=== PATIENT | female | born 1970 | race African-American/Black ===

== ENCOUNTER 2018-02-26 19:38 | Emergency (ER) | payer MEDICAID ==
[~2018-02-26] VITALS: Ht 167.6 cm; Wt 84.0 kg
[2018-02-26 23:00] VITALS: BP 134/76
== END 2018-02-26 23:00 | disposition home or self-care (01) ==
LOC: ER 22:34
DX: S46.812A Strain of other muscles, fascia and tendons at shoulder and upper arm level, left arm, initial encounter (principal); D17.9 Benign lipomatous neoplasm, unspecified; X58.XXXA Exposure to other specified factors, initial encounter; Y93.89 Activity, other specified; Y92.89 Other specified places as the place of occurrence of the external cause; Y99.8 Other external cause status; Z98.890 Other specified postprocedural states
CPT/HCPCS: 99283

== ENCOUNTER 2022-10-31 07:33 | Inpatient (IN) | payer MEDICAID, OTHER ==
[~2022-10-31] VITALS: Ht 167.6 cm; Wt 81.6 kg
[2022-10-31] MEDS ORDERED: FAMOTIDINE 20MG/2ML VIAL IV ONE (08:30)
[2022-10-31] MEDS ORDERED: SODIUM CHLORIDE 0.9% 1,000 ML IV ONE (08:30)
[2022-10-31] MEDS ORDERED: ONDANSETRON HCL 4MG/2ML INJ IV ONE (08:30)
[2022-10-31] MEDS ORDERED: ACETAMINOPHEN 325MG TABLET PO ONE (08:30)
[2022-10-31] MEDS ORDERED: KETOROLAC 30MG/ML VIAL IV ONE (08:30)
[2022-10-31 09:00] LABS: HEMATOCRIT. 26.6 % (36.0-48.0); HEMOGLOBIN. 8.7 g/dL (12.0-16.0); MEAN CORPUSCULAR HEMOGLOBIN 23.3 pg (28.0-32.0); MEAN CORPUSCULAR VOLUME 71.4 fL (81.0-99.0); MEAN PLATELET VOLUME 7.3 fl (7.4-10.4); PLATELET 492 x1000/uL (130-400); RED BLOOD CELL COUNT 3.72 mill/uL (4.2-5.4)
[2022-10-31 09:03] LABS: CHLORIDE 99 mEq/L (98-107)
[2022-10-31 09:20] VITALS: BP 145/61
[2022-10-31 09:47] LABS: PLATELET ESTIMATE INCREASED
[2022-10-31] MEDS ORDERED: AZITHROMYCIN 500MG/250ML 250 ML IV NR (10:00)
[2022-10-31] MEDS ORDERED: CEFTRIAXONE 1GM PREMIX 50 ML IV NR (10:00)
[2022-10-31 10:05] LABS: CLARITY URINE CLOUDY (CLEAR); COLOR URINE YELLOW (YELLOW); KETONES URINE NEGATIVE (NEGATIVE); LEUKOCYTE ESTERASE URINE NEGATIVE (NEGATIVE); NITRITE URINE NEGATIVE (NEGATIVE); OCCULT BLOOD URINE 3+ (NEGATIVE); PROTEIN URINE 2+ (NEGATIVE); SPECIFIC GRAVITY URINE 1.014 (1.005-1.030)
[2022-10-31] MEDS ORDERED: MORPHINE SULFATE 2 MG/ML CPJ (NOT FOR IM USE) IV ONE (11:00)
[2022-10-31 12:00] VITALS: BP 150/73
[2022-10-31] MEDS ORDERED: CLONIDINE 0.1MG TABLET PO PRN (13:30)
[2022-10-31] MEDS ORDERED: ONDANSETRON HCL 4MG/2ML INJ IV PRN (13:30)
[2022-10-31] MEDS ORDERED: DIPHENHYDRAMINE 50MG/ML VIAL IV PRN (13:30)
[2022-10-31] MEDS ORDERED: CEFTRIAXONE 1GM PREMIX 50 ML IV SCH (13:30)
[2022-10-31] MEDS ORDERED: NALOXONE HCL 0.4MG/ML VIAL IV PRN (13:45)
[2022-10-31 15:43] VITALS: BP 135/76
[2022-10-31 16:00] VITALS: BP 103/61
[2022-10-31 20:00] VITALS: BP 122/69
[2022-10-31] MEDS: METRONIDAZOLE 500MG TABLET PO SCH (21:49)
[2022-10-31] MEDS: ACETAMINOPHEN 325MG TABLET PO PRN (21:54)
[2022-11-01] VITALS: BP 118/65
[2022-11-01] MEDS ORDERED: VANCOMYCIN 1.25GM PMX (XELLIA) 250 ML IV NR (00:30)
[2022-11-01 04:00] VITALS: BP 123/95
[2022-11-01] MEDS: METRONIDAZOLE 500MG TABLET PO SCH ×3 (05:28→23:26)
[2022-11-01 08:00] VITALS: BP 123/78
[2022-11-01 08:33] LABS: BASOPHILS % 0.4 % (0.0-2.0); EOSINOPHILS % 0.6 % (0.0-5.0); HEMATOCRIT. 24.3 % (36.0-48.0); HEMOGLOBIN. 7.8 g/dL (12.0-16.0); LYMPHOCYTES % 8.2 % (20.0-50.0); MEAN CORPUSCULAR HEMOGLOBIN 22.6 pg (28.0-32.0); MEAN CORPUSCULAR VOLUME 70.7 fL (81.0-99.0); MEAN PLATELET VOLUME 7.5 fl (7.4-10.4); NEUTROPHILS % 79.8 % (40.0-76.0); PLATELET 469 x1000/uL (130-400); RED BLOOD CELL COUNT 3.44 mill/uL (4.2-5.4); RED CELL DISTRIBUTION WIDTH 16.7 % (11.6-14.6)
[2022-11-01 08:41] LABS: CHLORIDE 105 mEq/L (98-107)
[2022-11-01] MEDS: HYDROCODONE/ACETAMINOPHEN 5/325MG TABLET PO PRN (09:28)
[2022-11-01] MEDS ORDERED: AZITHROMYCIN 500 MG in DEXT 5% WATER 250 ML IV SCH (11:00)
[2022-11-01 12:00] VITALS: BP 112/54
[2022-11-01] MEDS: CEFTRIAXONE 1,000 MG in DEXTROSE 5% WATER 50 ML IV SCH (12:00)
[2022-11-01] MEDS: FERROUS SULFATE 325MG TABLET PO SCH ×2 (14:36→19:50)
[2022-11-01] MEDS: IPRATROPIUM/ALBUTEROL 0.5-3(2.5)MG/3ML NEB HHN PRN (14:50)
[2022-11-01 16:00] VITALS: BP 117/62
[2022-11-01] MEDS: DOCUSATE SODIUM 100MG CAPSULE PO SCH (19:50)
[2022-11-01] MEDS: AZITHROMYCIN 500 MG in DEXT 5% WATER 250 ML IV SCH (19:50)
[2022-11-02] MEDS: HYDROCODONE/ACETAMINOPHEN 5/325MG TABLET PO PRN ×2 (00:43→06:41)
[2022-11-02] MEDS: VANCOMYCIN 750MG PREMIX 150 ML IV SCH ×3 (00:43→21:52)
[2022-11-02] MEDS: METRONIDAZOLE 500MG TABLET PO SCH ×3 (06:35→21:52)
[2022-11-02] MEDS: IPRATROPIUM/ALBUTEROL 0.5-3(2.5)MG/3ML NEB HHN PRN (07:42)
[2022-11-02 07:52] VITALS: BP 118/73
[2022-11-02] MEDS: FERROUS SULFATE 325MG TABLET PO SCH ×3 (08:33→17:07)
[2022-11-02] MEDS: DOCUSATE SODIUM 100MG CAPSULE PO SCH ×2 (08:33→17:07)
[2022-11-02 12:00] VITALS: BP 142/82
[2022-11-02] MEDS: CEFTRIAXONE 1,000 MG in DEXTROSE 5% WATER 50 ML IV SCH (12:45)
[2022-11-02] MEDS: AZITHROMYCIN 500 MG in DEXT 5% WATER 250 ML IV SCH (17:07)
[2022-11-02 20:00] VITALS: BP 130/81
[2022-11-03] VITALS: BP 139/87
[2022-11-03 04:00] VITALS: BP 134/84
[2022-11-03 06:12] LABS: HEMATOCRIT. 24.4 % (36.0-48.0); HEMOGLOBIN. 7.9 g/dL (12.0-16.0); MEAN CORPUSCULAR HEMOGLOBIN 22.8 pg (28.0-32.0); MEAN PLATELET VOLUME 7.2 fl (7.4-10.4); PLATELET 545 x1000/uL (130-400); RED BLOOD CELL COUNT 3.48 mill/uL (4.2-5.4); RED CELL DISTRIBUTION WIDTH 17.1 % (11.6-14.6)
[2022-11-03 07:07] LABS: CHLORIDE 102 mEq/L (98-107)
[2022-11-03 08:00] VITALS: BP 150/87
[2022-11-03] MEDS: DOCUSATE SODIUM 100MG CAPSULE PO SCH ×2 (10:07→17:15)
[2022-11-03] MEDS: CEFTRIAXONE 1,000 MG in DEXTROSE 5% WATER 50 ML IV SCH (10:08)
[2022-11-03] MEDS: FERROUS SULFATE 325MG TABLET PO SCH ×3 (10:08→17:15)
[2022-11-03] MEDS: IPRATROPIUM/ALBUTEROL 0.5-3(2.5)MG/3ML NEB HHN PRN ×2 (10:32→20:19)
[2022-11-03 12:00] VITALS: BP 140/81
[2022-11-03 16:00] VITALS: BP 149/89
[2022-11-03 17:13] LABS: PLATELET ESTIMATE INCREASED
[2022-11-03 20:00] VITALS: BP 153/80
[2022-11-03] MEDS: GUAIFENESIN 600MG ER TABLET PO SCH (20:47)
[2022-11-04] VITALS: BP 142/87
[2022-11-04 04:00] VITALS: BP 142/89
[2022-11-04] MEDS: FERROUS SULFATE 325MG TABLET PO SCH ×3 (06:19→17:50)
[2022-11-04 06:47] LABS: HCG SCREEN NEGATIVE
[2022-11-04 08:00] VITALS: BP 151/83
[2022-11-04 08:08] LABS: HIV SCREEN 4G Non Reactive (Non Reactive)
[2022-11-04] MEDS: GUAIFENESIN 600MG ER TABLET PO SCH ×2 (08:55→20:41)
[2022-11-04] MEDS: DOCUSATE SODIUM 100MG CAPSULE PO SCH ×2 (08:56→17:00)
[2022-11-04 12:00] VITALS: BP_SYST 136; BP_SYST 145; BP_DIAS 49; BP_DIAS 78
[2022-11-04] MEDS: CEFTRIAXONE 1,000 MG in DEXTROSE 5% WATER 50 ML IV SCH (12:03)
[2022-11-04 16:00] VITALS: BP 126/73
[2022-11-04] MEDS: HYDROCODONE/ACETAMINOPHEN 5/325MG TABLET PO PRN (18:19)
[2022-11-04] MEDS: AZITHROMYCIN 500 MG in DEXT 5% WATER 250 ML IV SCH (18:30)
[2022-11-04 20:00] VITALS: BP 139/79
[2022-11-05] VITALS: BP 137/90
[2022-11-05] MEDS: HYDROCODONE/ACETAMINOPHEN 5/325MG TABLET PO PRN ×2 (02:08→12:49)
[2022-11-05 08:00] VITALS: BP 126/72
[2022-11-05] MEDS: FERROUS SULFATE 325MG TABLET PO SCH ×3 (08:49→19:03)
[2022-11-05] MEDS: DOCUSATE SODIUM 100MG CAPSULE PO SCH ×2 (08:49→19:03)
[2022-11-05] MEDS: GUAIFENESIN 600MG ER TABLET PO SCH ×2 (08:49→23:12)
[2022-11-05] MEDS: CEFTRIAXONE 1,000 MG in DEXTROSE 5% WATER 50 ML IV SCH (12:33)
[2022-11-05 16:00] VITALS: BP 135/80
[2022-11-05] MEDS: AZITHROMYCIN 500 MG in DEXT 5% WATER 250 ML IV SCH (19:03)
[2022-11-05 20:00] VITALS: BP 121/72
[2022-11-05] MEDS: ACETAMINOPHEN 325MG TABLET PO PRN (22:13)
[2022-11-05] MEDS ORDERED: POTASSIUM CHLORIDE 20MEQ TABLET SR PO NR (22:45)
[2022-11-06] VITALS: BP_SYST 123; BP_SYST 126; BP_DIAS 57; BP_DIAS 71
[2022-11-06 04:00] VITALS: BP 142/78
[2022-11-06] MEDS: HYDROCODONE/ACETAMINOPHEN 5/325MG TABLET PO PRN ×3 (06:18→20:36)
[2022-11-06] MEDS: GUAIFENESIN 600MG ER TABLET PO SCH ×2 (08:32→20:35)
[2022-11-06] MEDS: DOCUSATE SODIUM 100MG CAPSULE PO SCH ×2 (08:32→17:40)
[2022-11-06] MEDS: FERROUS SULFATE 325MG TABLET PO SCH ×3 (08:32→17:40)
[2022-11-06 09:59] LABS: BASOPHILS % 0.5 % (0.0-2.0); EOSINOPHILS % 1.2 % (0.0-5.0); HEMOGLOBIN. 8.2 g/dL (12.0-16.0); LYMPHOCYTES % 12.5 % (20.0-50.0); MEAN CORPUSCULAR HEMOGLOBIN 22.4 pg (28.0-32.0); MEAN CORPUSCULAR VOLUME 70.4 fL (81.0-99.0); MEAN PLATELET VOLUME 6.9 fl (7.4-10.4); MONOCYTES % 6.3 % (2.0-8.0); NEUTROPHILS % 79.5 % (40.0-76.0); PLATELET 741 x1000/uL (130-400); RED BLOOD CELL COUNT 3.69 mill/uL (4.2-5.4)
[2022-11-06 10:09] LABS: CHLORIDE 99 mEq/L (98-107)
[2022-11-06] MEDS: CEFTRIAXONE 1,000 MG in DEXTROSE 5% WATER 50 ML IV SCH (11:15)
[2022-11-06 12:00] VITALS: BP_SYST 136; BP_SYST 141; BP_DIAS 84; BP_DIAS 87
[2022-11-06] MEDS ORDERED: NALOXONE HCL 0.4MG/ML VIAL IV PRN (14:30)
[2022-11-06 16:00] VITALS: BP 131/80
[2022-11-06] MEDS ORDERED: CLONIDINE 0.1MG TABLET PO PRN (16:45)
[2022-11-06] MEDS: BENZONATATE 100MG CAPSULE PO PRN (17:45)
[2022-11-06 20:00] VITALS: BP 142/89
[2022-11-07] VITALS: BP 126/71
[2022-11-07 04:00] VITALS: BP 135/75
[2022-11-07] MEDS: BENZONATATE 100MG CAPSULE PO PRN (06:22)
[2022-11-07] MEDS: FERROUS SULFATE 325MG TABLET PO SCH (06:22)
[2022-11-07] MEDS: HYDROCODONE/ACETAMINOPHEN 5/325MG TABLET PO PRN ×2 (06:22→12:21)
[2022-11-07 08:00] VITALS: BP 142/76
[2022-11-07] MEDS ORDERED: LIDOCAINE HCL 1% 10 MG/ML 10ML VIAL ONE (08:31)
[2022-11-07] MEDS: DOCUSATE SODIUM 100MG CAPSULE PO SCH (10:01)
[2022-11-07] MEDS: GUAIFENESIN 600MG ER TABLET PO SCH (10:01)
[2022-11-07] MEDS: CEFTRIAXONE 1,000 MG in DEXTROSE 5% WATER 50 ML IV SCH (10:16)
[2022-11-07] MEDS ORDERED: GUAI600T44 PO (10:45)
[2022-11-07] MEDS ORDERED: BENZ100C86 PO (10:45)
[2022-11-07] MEDS ORDERED: FERR-63 PO (10:45)
[2022-11-07 12:00] VITALS: BP 128/75
[2022-11-07 12:14] VITALS: BP 128/75
[2022-11-07 12:21] VITALS: BP 128/75
== END 2022-11-07 13:20 | disposition home health service (06) | DRG 720 ==
LOC: ER 07:33 → 6EST 13:01 → EDBEDREQTM 13:04 → EDBEDREQ 13:04
PROVIDERS: ADMIT Internal Medicine; ATTEND Internal Medicine
PROC: 02HV33Z Insertion of Infusion Device into Superior Vena Cava, Percutaneous Approach (ICD-10-PCS; principal; 2022-11-07)
PROC: B5181ZA Fluoroscopy of Superior Vena Cava using Low Osmolar Contrast, Guidance (ICD-10-PCS; 2022-11-07)
PROC: B548ZZA Ultrasonography of Superior Vena Cava, Guidance (ICD-10-PCS; 2022-11-07)
DX: A40.3 Sepsis due to Streptococcus pneumoniae (principal); J18.9 Pneumonia, unspecified organism; E44.0 Moderate protein-calorie malnutrition; E87.1 Hypo-osmolality and hyponatremia; E88.09 Other disorders of plasma-protein metabolism, not elsewhere classified; Z20.822 Contact with and (suspected) exposure to COVID-19; E87.6 Hypokalemia; D25.9 Leiomyoma of uterus, unspecified; D50.9 Iron deficiency anemia, unspecified; N83.209 Unspecified ovarian cyst, unspecified side; N93.8 Other specified abnormal uterine and vaginal bleeding; Z68.29 Body mass index [BMI] 29.0-29.9, adult
CPT/HCPCS: 36415; 36573; 71045; 71250; 74176; 76856; 80048; 80053; 80202; 81003; 83735; 84145; 84484; 84703; 85025; 87077; 87186; 87389; 87426; 87804; 93005; 93970; 94640; 99285; C1725; C9803; J0456; J0696; J1200; J1885; J2270; J2405; J3370; J3490; J7030; J7060

== ENCOUNTER 2023-11-09 02:20 | Emergency (ER) | payer MEDICAID ==
[~2023-11-09] VITALS: Ht 167.6 cm; Wt 79.0 kg
[~2023-11-09 02:20] MED LIST: ACET-2708 MT; ALBU6.7H3 INH; ASPI-1497 MT; BENZ100C86 PO; FERR-63 PO; GUAI-450 MT; GUAI600T44 PO
[2023-11-09 02:35] VITALS: TEMP 98.1; O2SAT 100
[2023-11-09] MEDS: ACETAMINOPHEN 325MG TABLET PO ONE (06:18)
[2023-11-09 06:46] VITALS: BP 146/87; PULSE 89; RESP 15
== END 2023-11-09 06:47 | disposition home or self-care (01) ==
LOC: ER 02:20
DX: R51.9 Headache, unspecified (principal); F19.90 Other psychoactive substance use, unspecified, uncomplicated; D64.9 Anemia, unspecified
CPT/HCPCS: 99283; 99284